=== PATIENT | female | born 1940 | race Caucasian/White ===

== ENCOUNTER 2024-02-01 21:20 | Emergency (ER) | payer MEDICARE ==
[2024-02-01 21:41] LABS: BASOPHILS ABSOLUTE AUTO 0.03 10^3/uL (0.00-0.50); BASOPHILS PERCENT AUTO 0.5 % (0-1); EOSINOPHILS ABSOLUTE AUTO 0.25 10^3/uL (0.00-1.50); EOSINOPHILS PERCENT AUTO 4.5 % (0-6); HEMATOCRIT 37.5 % (37.0-47.0); HEMOGLOBIN 12.2 g/dL (12.0-16.0); IMMATURE GRAN ABSOLUTE AUTO 0.01 10^3/uL (0.00-0.49); IMMATURE GRAN PERCENT AUTO 0.2 % (0.0-4.9); LYMPHOCYTES ABSOLUTE AUTO 2.11 10^3/uL (0.60-5.00); LYMPHOCYTES PERCENT AUTO 38.1 % (24-44); MEAN CORPUSCULAR HEMOGLOBIN 31.5 pg (27.0-32.0); MEAN CORPUSCULAR HGB CONC 32.5 g/dL (32.0-36.0); MEAN CORPUSCULAR VOLUME 96.9 fL (83.0-97.0); MONOCYTES ABSOLUTE AUTO 0.57 10^3/uL (0.00-1.50); MONOCYTES PERCENT AUTO 10.3 % (0-10); NEUTROPHILS ABSOLUTE AUTO 2.57 x10^3/uL (1.80-8.00); NEUTROPHILS PERCENT AUTO 46.4 % (41-71); PLATELET COUNT,PLT 187 10^3/uL (150-400); RED BLOOD CELL COUNT 3.87 x10^6/uL (4.00-5.50); WHITE BLOOD CELL COUNT,WBC 5.5 10^3/uL (4.0-11.0)
[2024-02-01 21:56] LABS: ALBUMIN 3.1 g/dL (3.4-5.0); BILIRUBIN TOTAL 0.4 mg/dL (0.0-1.0); CALCIUM 9.1 mg/dL (8.4-10.1); CREATININE 1.3 mg/dL (0.6-1.0); EST CRCL DRUG DOSING (CG) 26.17 mL/min; POTASSIUM,K 4.1 mEq/L (3.5-5.0); PROTEIN TOTAL,TP 7.1 g/dL (6.4-8.2)
[2024-02-01 22:17] LABS: CORONAVIRUS COVID-19 NAA NEGATIVE (NEGATIVE); INFLUENZA A NAA NEGATIVE (NEGATIVE); INFLUENZA B NAA NEGATIVE (NEGATIVE)
[2024-02-01] MEDS: cefTRIAXone 1 GM Vial IVPUSH ONE (22:30)
[2024-02-01] MEDS: methylPREDNISolone Sodium Succinate 40 MG/1 ML SDV IVPUSH ONE (22:31)
== END 2024-02-01 22:48 | disposition home or self-care (01) ==
LOC: CC.ED 21:20
DX: R55 Syncope and collapse (principal); J40 Bronchitis, not specified as acute or chronic; I10 Essential (primary) hypertension; E03.9 Hypothyroidism, unspecified; Z79.899 Other long term (current) drug therapy; Z79.82 Long term (current) use of aspirin; Z88.5 Allergy status to narcotic agent; Z88.8 Allergy status to other drugs, medicaments and biological substances
CPT/HCPCS: 0240U; 36415; 70450; 71046; 80053; 84484; 85025; 93005; 96374; 96375; 99285; J0696; J2919